=== PATIENT | female | born 2000 | race African-American/Black ===

== ENCOUNTER 2019-06-17 14:13 | Emergency (ER) | payer MEDICAID ==
[~2019-06-17] VITALS: Ht 160 cm; Wt 68.0 kg
[2019-06-17 14:18] VITALS: BP 125/76
[2019-06-17] MEDS ORDERED: oxyCODONE HCL/Acetaminophen 5/325mg ORAL ONE (15:30)
[2019-06-17] MEDS ORDERED: NAPROXEN500 M2 ORAL (15:33)
[2019-06-17] MEDS ORDERED: MEDROL DOSEPAK4 MG ORAL (15:33)
[2019-06-17] MEDS ORDERED: NORCO 5-325 TA1 EACH ORAL ×2 (15:33→15:59)
[2019-06-17] MEDS ORDERED: GABAPENTIN100 MG ORAL (15:33)
--- NOTE | 2019-06-17 15:59 | Emergency Room Report ---
History of Present Illness General Chief Complaint: Pain Source: Patient Present Illness HPI 19-year-old female no medical problems presents with right arm limpness, characterization is limp/week, no aggravating or alleviating factors severity is severe symptoms have been constant. Patient was seen at [facility] where she had a MRI brain that was negative MRI C-spine, negative, CT that was negative complete lab work negative however she still cannot move her right arm, she was evaluated by a neurologist there prescribed gabapentin and told to follow-up for possible nerve conduction studies. Allergies: Coded Allergies: PENICILLINS (Verified Allergy, Unknown, HIVES, 06/17/19) Patient History Past Medical History: see triage record Social History: Reports: drug use - Marijuana Last Menstrual Period: 05/30/19 Now: No Reviewed Nursing Documentation: PMH: Agreed; PSxH: Agreed Nursing Documentation-PMH Past Medical History: No History, Except For Hx Cerebrovascular Accident: Yes Hx Seizures: Yes Review of Systems All Other Systems: negative except mentioned in HPI Physical Exam Vital Signs Date Time Temp Pulse Resp B/P (MAP) Pulse Ox O2 Delivery O2 Flow Rate FiO2 06/17/19 14:18 98.2 98 17 125/76 95 Room Air Sp02 EP Interpretation: reviewed, normal General Appearance: well appearing, no apparent distress, alert Head: normocephalic, atraumatic Eyes: bilateral eye PERRL, bilateral eye EOMI ENT: uvula midline, moist mucus membranes Neck: supple, thyroid normal, supple/symm/no masses Respiratory: lungs clear, no respiratory distress, no retraction, no accessory muscle use Cardiovascular #1: normal peripheral pulses, regular rate, rhythm, no edema, no gallop, no murmur Gastrointestinal: non tender, soft, no guarding, no rebound Musculoskeletal: normal inspection, other - Right arm flaccid, 2+ radial pulses in the right arm, patient cannot feel pain on right arm, 2+ reflex brachial radialis and 2+ biceps muscle bulk intact Neurologic: alert, oriented x3 Psychiatric: mood/affect normal Skin: no rash, warm/dry Medical Decision Making Diagnostic Impression: Primary Impression: Right arm weakness ER Course Patient with right arm weakness of unknown cause, patient had a negative work- up at [facility], they did an MRI of the brain, MRI of the spinal cord, and CT brain, which all turned out negative, patient was also evaluated by neurologist who indicated that there was no acute stroke, all of this occurred 06/13/2019, patient without any improvement, counseled patient to follow-up with a neurologist, counseled patient she may benefit from nerve conduction studies, patient was also shown how to utilize her insurance card to follow-up with a PCP. No acute emergencies at this time, patient is not exhibiting any stroke symptoms, no facial droop, patient with right arm weakness of unknown origin possible brachial plexus injury versus nerve entrapment. Last Vital Signs Date Time Temp Pulse Resp B/P (MAP) Pulse Ox O2 Delivery O2 Flow Rate FiO2 06/17/19 14:18 98.2 98 17 125/76 (92) 95 Room Air Disposition: HOME, SELF-CARE Condition: Stable Scripts Hydrocodone Bit/Acetaminophen 5-325* (NORCO 5-325*) 1 Each Tablet 1 TAB ORAL Q6H PRN for For Pain, #10 TAB 0 Refills Prov: Yonatan Crain MD 06/17/19 Referrals: [facility] Naif Hatch. [facility] Patient Instructions: Weakness, [id number] Additional Instructions: The patient was provided with discharge instructions, notified to follow-up with a primary care doctor and or specialist in the next 24-48 hours, and to return to the ED if they have worsening of their symptoms. Please note that this report is being documented using [employer] technology. This can lead to erroneous entry secondary to incorrect interpretation by the dictating instrument. Yonatan Crain MD Jun 17, 2019 15:59
[2019-06-17 16:30] VITALS: BP 125/76
== END 2019-06-17 16:30 | disposition home or self-care (01) ==
LOC: EMR 14:34
DX: R53.1 Weakness (principal); Z86.73 Personal history of transient ischemic attack (TIA), and cerebral infarction without residual deficits; Z88.0 Allergy status to penicillin; F12.10 Cannabis abuse, uncomplicated
CPT/HCPCS: 81025; 99282

== ENCOUNTER 2019-12-31 14:48 | Emergency (ER) | payer MEDICAID ==
[~2019-12-31] VITALS: Ht 167.6 cm; Wt 63.0 kg
[~2019-12-31 14:48] MED LIST: GABAPENTIN100 MG ORAL; MEDROL DOSEPAK4 MG ORAL; NAPROXEN500 M2 ORAL; NORCO 5-325 TA1 EACH ORAL
[2019-12-31 15:07] VITALS: BP 110/69
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
[2019-12-31] MEDS ORDERED: Omnipaque-300 100ml vial INJ PRN (15:45)
--- NOTE | 2019-12-31 15:59 | NUR ---
ED Nurse Note: patient taken to CT scan.
[2019-12-31] MEDS ORDERED: Methocarbamol 750mg tab ORAL ONE (16:00)
[2019-12-31 16:15] LABS: APPEARANCE,URINE CLOUDY; BILIRUBIN, URINE NEGATIVE (NEGATIVE); COLOR,URINE AMBER; GLUCOSE, URINE (UA) NEGATIVE (NEGATIVE); KETONES,URINE 1+ (NEGATIVE); LEUKOCYTE ESTERASE ,URINE 3+ (NEGATIVE); NITRITE,URINE POSITIVE (NEGATIVE); PH,URINE 5 (4.5-8.0); PROTEIN,URINE 2+ (NEGATIVE); UROBILINOGEN,URINE 4 MG/DL (0.0-1.0)
[2019-12-31 16:52] LABS: BASOPHILS % (AUTO) 1.8 % (0.0-2.0); EOSINOPHILS % (AUTO) 4.7 % (0.0-3.0); HEMATOCRIT 48.9 % (37.0-47.0); HEMOGLOBIN 15.6 G/DL (12.0-16.0); LYMPHOCYTES % (AUTO) 26.7 % (20.0-45.0); MEAN CORPUSCULAR VOLUME 93 FL (80-99); MONOCYTES % (AUTO) 5.9 % (1.0-10.0); PLATELET COUNT 240 K/UL (150-450); RED BLOOD COUNT 5.27 M/UL (4.20-5.40); RED CELL DISTRIBUTION WIDTH 12.5 % (11.6-14.8); WHITE BLOOD COUNT 7.9 K/UL (4.8-10.8)
--- NOTE | 2019-12-31 17:03 | Diagnostic Imaging Report ---
Indication: Headache Technique: Contiguous 5 mm thick transaxial imaging of the head obtained in a Siemens Sensation [address] scanner. Soft tissue and bone windows generated. Automatic Exposure Control was utilized. Total Dose length Product (DLP): 1335mGycm CT Dose Index Volume (CTDIvol): 68.7 mGy Comparison: none Findings: The size and configuration of the cortical sulci, basal cisterns, and ventricles are within normal limits for age. There is no mass effect, midline shift, or edema identified. There is no evidence of acute hemorrhage or abnormal intra-axial or extra-axial fluid collections. The bones and soft tissues are unremarkable. There is some mucosal thickening in the ethmoid sinus. Impression: No mass effect, edema or acute bleed. Ethmoid sinusitis The CT scanner at [facility] is accredited by the [employer] and the scans are performed using dose optimization techniques as appropriate to a performed exam including Automatic Exposure control.
--- NOTE | 2019-12-31 17:05 | Diagnostic Imaging Report ---
Indication: Cervical trauma/pain. Technique: Continuous helical imaging of the cervical spine was obtained transaxially from the skull base to the upper thoracic spine. 2-D coronal and sagittal reformatted images were obtained. Automatic Exposure Control was utilized. Total Dose length Product (DLP): [address] Dose Index Volume (CTDIvol): 5.7 mGy Comparison: None Findings: There is no evidence of an acute fracture or malalignment. Atlantoaxial alignment appears normal. Height and configuration of the vertebral bodies and intervertebral discs are within normal limits. Uncovertebral joints and facets are unremarkable. There is straightening of the cervical spine which may be due to muscle spasm. There is no soft tissue swelling. Impression: No acute fracture. Straightening of the cervical spine which may be due to muscle spasm The CT scanner at [facility] is accredited by the [employer] and the scans are performed using dose optimization techniques as appropriate to a performed exam including Automatic Exposure control.
[2019-12-31 17:08] LABS: ANION GAP 8 mmol/L (5-15); BLOOD UREA NITROGEN 12 mg/dL (7-18); CALCIUM 9.8 MG/DL (8.5-10.1); CARBON DIOXIDE 30 MMOL/L (21-32); CHLORIDE 104 MMOL/L (98-107); CREATININE 0.9 MG/DL (0.55-1.30); POTASSIUM 3.9 MMOL/L (3.5-5.1); SODIUM 142 MMOL/L (136-145)
--- NOTE | 2019-12-31 17:08 | Diagnostic Imaging Report ---
Indication: Orbital and maxillofacial trauma and pain Technique: Continuous helical transaxial imaging of the orbits/maxillofacial structures obtained without intravenous contrast administration. Coronal 2-D reformats were also obtained. Study obtained in a Siemens sensation [address] Automatic Exposure Control was utilized. Total Dose length Product (DLP): Refer to CT head mGycm CT Dose Index Volume (CTDIvol): Refer to CT head mGy Comparison: None Findings: There is no evidence of an acute fracture. Paranasal sinuses and mastoids are clear. Soft tissues are unremarkable. IMPRESSION: Negative facial CT The CT scanner at [facility] is accredited by the [employer] and the scans are performed using dose optimization techniques as appropriate to a performed exam including Automatic Exposure control.
[2019-12-31 17:12] LABS: ALANINE AMINOTRANSFERASE 16 U/L (12-78); ALBUMIN 3.9 G/DL (3.4-5.0); ALKALINE PHOSPHATASE 97 U/L (46-116); ASPARTATE AMINO TRANSFERASE 19 U/L (15-37); BILIRUBIN,TOTAL 0.3 MG/DL (0.2-1.0)
--- NOTE | 2019-12-31 17:30 | NUR ---
ED Nurse Note: patient came back from CT scan
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
[2019-12-31] MEDS ORDERED: Ketorolac 30mg Inj IV ONE (17:45)
[2019-12-31 17:50] VITALS: BP 115/72
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
[2019-12-31] MEDS ORDERED: LIDODERM700 M1 TOPIC (17:58)
[2019-12-31] MEDS ORDERED: IBUPROFEN600 MG ORAL (17:58)
[2019-12-31] MEDS ORDERED: ROBAXIN-500MG ORAL (17:58)
[2019-12-31] MEDS ORDERED: NITROFURANTOIN100 M2 ORAL (17:58)
--- NOTE | 2019-12-31 18:11 | NUR ---
ER DISCHARGE NOTE: Patient is cleared to be discharged per JARRELL GOTTI, pt is aox4, on room air, with stable vital signs. pt was given dc and prescription instructions, pt was able to verbalize understanding, pt id band and iv site removed without complications. pt is able to ambulate with steady gait. pt took all belongings.
[2019-12-31 18:12] VITALS: BP 115/72
== END 2019-12-31 18:12 | disposition home or self-care (01) ==
LOC: EMR 16:00
DX: S00.83XA Contusion of other part of head, initial encounter (principal); S16.1XXA Strain of muscle, fascia and tendon at neck level, initial encounter; S30.1XXA Contusion of abdominal wall, initial encounter; V49.50XA Passenger injured in collision with unspecified motor vehicles in traffic accident, initial encounter; Y92.410 Unspecified street and highway as the place of occurrence of the external cause; N39.0 Urinary tract infection, site not specified; Z86.73 Personal history of transient ischemic attack (TIA), and cerebral infarction without residual deficits; Z88.0 Allergy status to penicillin
CPT/HCPCS: 36415; 70450; 70486; 72125; 74177; 80053; 80307; 81003; 81025; 83690; 85025; 87086; 87181; 96361; 96374; 96375; 96376; G0480; J1885; J2405; J7030; Q9967; Z7502; 99284

== ENCOUNTER 2020-06-28 16:02 | Emergency (ER) | payer MEDICAID ==
[~2020-06-28] VITALS: Ht 160 cm; Wt 69.9 kg
[~2020-06-28 16:02] MED LIST changes: +IBUPROFEN600 MG ORAL; +LIDODERM700 M1 TOPIC; +NITROFURANTOIN100 M2 ORAL; +ROBAXIN-500MG ORAL
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
--- NOTE | 2020-06-28 16:10 | NUR ---
ED Nurse Note: Pt reports taking advil [employer] and pain did not go away
[2020-06-28 16:11] VITALS: BP 126/73
[2020-06-28] MEDS ORDERED: Tetanus/Diptheria/Pertussis IM ONE (16:30)
[2020-06-28] MEDS ORDERED: Bacitracin Oint UD TOPIC ONE ×2 (16:39→16:45)
[2020-06-28] MEDS ORDERED: Tylenol #3 tab (300mg/30mg) ORAL ONE (16:45)
[2020-06-28 16:54] VITALS: BP 121/75
--- NOTE | 2020-06-28 16:54 | NUR ---
ER DISCHARGE NOTE: Patient is cleared to be discharged per ERMD, pt is aox4, on room air, with stable vital signs. pt was given dc and prescription instructions, pt was able to verbalize understanding, pt id band removed. pt is able to ambulate with steady gait. pt took all belongings.
--- NOTE | 2020-06-28 16:54 | Emergency Room Report ---
History of Present Illness General Chief Complaint: Pain Source: Patient Present Illness HPI 20 YO female presents to the ED c/o laceration to Left index finger. Patient denies bleeding at this time. She reports 8 out of 10 severity pain and tenderness. She reports the pain shoots up her left arm. Patient denies notable trauma or fall. Patient reports injury was sustained by a pair of scissors. Patient denies taking blood thinning medications. She denies fevers or chills. She is not sure when her last tetanus vaccination was. Patient states that she is ambidextrous. She denies or suspicion for at this time. Allergies: Coded Allergies: PENICILLINS (Verified Allergy, Unknown, HIVES, 06/17/19) COVID-19 Screening Contact w/high risk pt: No Experienced COVID-19 symptoms?: No COVID-19 Testing performed NETWORK OPERATIONS ANALYST: No Patient History Past Medical History: see triage record Past Surgical History: none Pertinent Family History: none Last Menstrual Period: 05/06/20 Now: No Reviewed Nursing Documentation: PMH: Agreed; PSxH: Agreed Nursing Documentation-PMH Past Medical History: No History, Except For Hx Cerebrovascular Accident: Yes Hx Seizures: Yes Review of Systems All Other Systems: negative except mentioned in HPI Physical Exam Vital Signs Date Time Temp Pulse Resp B/P (MAP) Pulse Ox O2 Delivery O2 Flow Rate FiO2 06/28/20 16:04 98.1 78 15 126/73 (90) 99 Room Air Sp02 EP Interpretation: reviewed, normal General Appearance: no apparent distress, alert, GCS 15, non-toxic Head: normocephalic, atraumatic Eyes: bilateral eye normal inspection, bilateral eye PERRL ENT: hearing grossly normal, normal voice Neck: full range of motion Respiratory: lungs clear, normal breath sounds, speaking full sentences Cardiovascular #1: regular rate, rhythm Musculoskeletal: normal range of motion, gait/station normal, non-tender - no bony ttp Neurologic: alert, motor strength/tone normal, oriented x3, sensory intact, responsive, speech normal Psychiatric: judgement/insight normal Skin: normal color, laceration - left index finger laceration approx 1 cm in length not bleeding at this time. well approximated on its own. some mild paresthesia to the distal tip of the left index finger. Medical Decision Making PA Attestation Dr. King is my supervising Physician whom patient management has been discussed with. Diagnostic Impression: Primary Impression: Laceration of finger Qualified Codes: S61.211A - Laceration without foreign body of left index finger without damage to nail, initial encounter ER Course 20 YO female presents to the ED c/o laceration to Left index finger. Patient denies bleeding at this time. She reports 8 out of 10 severity pain and tenderness. She reports the pain shoots up her left arm. Patient denies notable trauma or fall. Patient reports injury was sustained by a pair of scissors. Patient denies taking blood thinning medications. She denies fevers or chills. She is not sure when her last tetanus vaccination was. Patient states that she is ambidextrous. She denies or suspicion for at this time. Ddx considered but are not limited to laceration, tendon injury, cellulitis, amputation Vital signs: are WNL, pt. is afebrile H&PE are most consistent with: left index finger laceration approx 1 cm in length not bleeding at this time. well approximated on its own. some mild paresthesia to the distal tip of the left index finger. ORDERS: none required at this time, the diagnosis is clinical ED INTERVENTIONS: Wound to heal by secondary intent due to delayed ED presentation of 2 days. -Tetanus vaccine was administered as pt. vaccination status was unknown. - The wound was copiously irrigated with normal saline, and explored for foreign body for which no FB was found. -Bacitracin and sterile dressing is applied. - Finger Splint applied to the left index finger by scale technician. Pt. remains neurovascularly intact. Discussed with patient: That we make every effort to approximate the laceration as best as we can so that scarring will be as cosmetically pleasing as possible with our limited cosmetic skill set in the Emergency dept. Regardless of our best efforts there will be scarring after laceration repair. The extent of scarring is unknown at this time. DISCHARGE: At this time pt. is stable for d/c to home. Will provide printed patient care instructions, and any necessary prescriptions. Care plan and follow up instructions have been discussed with the patient prior to discharge. Last Vital Signs Date Time Temp Pulse Resp B/P (MAP) Pulse Ox O2 Delivery O2 Flow Rate FiO2 06/28/20 16:11 98.1 68 15 126/73 99 Room Air Status: improved Disposition: HOME, SELF-CARE Condition: Stable Scripts Naproxen* (NAPROXEN*) 500 Mg Tablet 500 MG ORAL TWICE A WEEK for 7 Days, #14 TAB 0 Refills Prov: Dominique Maria 06/28/20 Cephalexin* (KEFLEX*) 500 Mg Capsule 500 MG ORAL EVERY 12 HOURS for 7 Days, #14 CAP 0 Refills Prov: Dominique Maria 06/28/20 Referrals: [facility],REFERRING (PCP) Patient Instructions: Nonsutured Laceration Care Additional Instructions: Take medications as directed. Follow up with a Primary Care Provider in 3-5 days, even if your symptoms have resolved. Follow up with hand specialist if you continue to have numbness/tingling in the affected finger Return sooner to ED if new symptoms occur, or current symptoms become worse. - Please note that this Emergency Department Report was dictated using [employer] plater technology software, occasionally this can lead to erroneous entry secondary to interpretation by the dictation equipment. Dominique Maria Jun 28, 2020 16:54
[2020-06-28] MEDS ORDERED: CEPHALEXIN500 MG ORAL (16:55)
[2020-06-28] MEDS ORDERED: NAPROXEN500 M2 ORAL (16:55)
== END 2020-06-28 16:50 | disposition home or self-care (01) ==
LOC: EMR 16:21
DX: S61.211A Laceration without foreign body of left index finger without damage to nail, initial encounter (principal); Z23 Encounter for immunization; W45.8XXA Other foreign body or object entering through skin, initial encounter; Y92.9 Unspecified place or not applicable; Z88.0 Allergy status to penicillin; G40.909 Epilepsy, unspecified, not intractable, without status epilepticus; Z86.73 Personal history of transient ischemic attack (TIA), and cerebral infarction without residual deficits
CPT/HCPCS: 90471; 90715; Z7502; 99282